=== PATIENT | female | born 1975 | race Two or more races ===

== ENCOUNTER 2017-02-09 06:00 | Inpatient (IN) | payer OTHER ==
[~2017-02-09] VITALS: Ht 167.6 cm; Wt 104.3 kg
[2017-02-09] MEDS ORDERED: CEFAZOLIN SODIUM/DEXTROSE,ISO 50 ML IV ONE (06:25)
[2017-02-09] MEDS ORDERED: IV SET PRIMARY 1 EA INFUS.SET MC ONE (06:25)
[2017-02-09] MEDS ORDERED: SECONDARY IV SET 1 EA INFUS.SET MC ONE ×2 (06:25→16:01)
[2017-02-09] MEDS ORDERED: IV LR 1000 ML 1,000 ML ONE (06:26)
--- NOTE | 2017-02-09 06:30 | NUR ---
PLZ SEE PRE OP ASSESSMENT SHEET FOR INFORMATION
[2017-02-09] MEDS ORDERED: LISI-603 PO (08:28)
[2017-02-09] MEDS ORDERED: METF500T4 PO (08:28)
[2017-02-09] MEDS ORDERED: MIDAZOLAM HCL 2 MG/2ML VIAL ONE (09:45)
[2017-02-09] MEDS ORDERED: FENTANYL PF 100MCG/2ML AMPUL ONE ×3 (09:46→13:50)
[2017-02-09] MEDS ORDERED: BUPIVACAINE 0.5 % PF 150 MG/30 ML VIAL ONE (10:01)
[2017-02-09] MEDS ORDERED: BUPIVACAINE MPF 0.5% W/EPI INJ 30 ML VIAL ONE (10:56)
[2017-02-09] MEDS ORDERED: KETOROLAC TROMETHAMINE INJ 30 MG/ML VIAL ONE (10:56)
[2017-02-09] MEDS ORDERED: BACITRACIN 50000 UNITS/VIAL ONE (10:57)
[2017-02-09] MEDS ORDERED: TRANEXAMIC ACID 3,000 MG in SODIUM CHLORIDE IRRIG SOLUTION 70 ML IR ONE (11:30)
[2017-02-09] MEDS ORDERED: HYDROMORPHONE INJ 2 MG/ML DISP.SYRIN ONE (11:46)
[2017-02-09] MEDS ORDERED: HYDROMORPHONE 1 MG/1 ML DISP.SYRIN ONE ×2 (13:24→13:38)
[2017-02-09] MEDS ORDERED: IV NS 0.9% 1,000 ML ONE (13:32)
[2017-02-09] MEDS ORDERED: DOCUSATE SODIUM 250 MG CAPSULE PO PRN (13:43)
[2017-02-09] MEDS ORDERED: ONDANSETRON HCL/PF 4 MG/2 ML VIAL IV PRN (14:00)
[2017-02-09] MEDS ORDERED: IV D5/0.45 NACL 1,000 ML IV PRN (14:00)
[2017-02-09] MEDS ORDERED: HYDROCODONE/APAP 5/325MG 1 EACH TABLET PO PRN (14:00)
[2017-02-09] MEDS ORDERED: ACETAMINOPHEN 325 MG TABLET PO PRN (14:00)
[2017-02-09] MEDS ORDERED: HYDROMORPHONE 1 MG/1 ML DISP.SYRIN IV PRN (14:30)
[2017-02-09] MEDS ORDERED: diphenhydrAMINE HCL 25 MG CAPSULE PO PRN (14:30)
[2017-02-09] MEDS ORDERED: LORAZEPAM 0.5 MG TABLET PO PRN (14:30)
[2017-02-09] MEDS ORDERED: CLONIDINE HCL 0.1 MG TABLET PO PRN (14:30)
[2017-02-09] MEDS ORDERED: NALOXONE HCL 0.4 MG/ML AMPUL IV PRN (14:30)
[2017-02-09] MEDS ORDERED: MENTHOL/CETYLPYRD (CEPACOL) 1 LOZ LOZENGE PO PRN (14:30)
[2017-02-09] MEDS ORDERED: MAG HYDROX/AL HYDROX/SIMETH 30 ML UDC PO PRN (14:30)
[2017-02-09] MEDS ORDERED: ONDANSETRON HCL/PF 4 MG/2 ML VIAL IVP PRN (14:30)
[2017-02-09] MEDS ORDERED: BISACODYL SUPP (10 MG) 10 MG/SUPP.RECT SUPP.RECT RC PRN ×2 (14:30→22:00)
--- NOTE | 2017-02-09 14:30 | NUR ---
OR PT RECEIVED REPORT GIVEN AT BEDSIDE BY CITY COUNCILMAN. PT RESTING IN BED. ASLEEP INTERMITTENTLY. NO S/S OR C/O PAIN OR DISTRESS NOTED. SIDE RAILS UP X2, CALL LIGHT LEFT WITHIN REACH. PT ORIENTED TO ROOM, BED, AND UNIT POLICIES REGARDING PATIENT CARE AND VISITING HOURS. ALL QUESTIONS AND CONCERNS ADDRESSED. PATIENT VERBALIZED UNDERSTANDING.
[2017-02-09] MEDS ORDERED: IV SET PRIMARY PUMP SET 1 EA INFUS.SET MC ONE (14:49)
[2017-02-09] MEDS ORDERED: IV NS 0.9% 250 ML IV ONE (16:07)
[2017-02-09] MEDS: ANCEF 1 GM/50 ML D5W IV SCH ×2 (16:13)
[2017-02-09] MEDS: RIVAROXABAN 10 MG TABLET PO SCH (16:14)
[2017-02-09] MEDS: DOCUSATE SODIUM 100 MG CAPSULE PO SCH (16:14)
[2017-02-09] MEDS ORDERED: SET PCA INFUSE SET 1 EA INFUS.SET MC ONE (16:34)
[2017-02-09] MEDS: HYDROMORPHONE MDV 30 MG in IV NS 0.9% 15 ML, PCA TOTAL VOLUME 1 BAG IV PRN ×3 (16:42)
[2017-02-09] MEDS ORDERED: DEXTROSE 50%-WATER 50 ML DISP.SYRIN IV PRN (17:30)
[2017-02-09] MEDS: METFORMIN 500 MG TABLET PO SCH (17:47)
[2017-02-09] MEDS: LISINOPRIL (20MG) 20 MG TABLET PO SCH (17:47)
[2017-02-09] MEDS: BLOOD SUGAR DIAGNOSTIC 1 EACH STRIP IN SCH ×2 (17:48→21:51)
--- NOTE | 2017-02-09 18:32 | NUR ---
CHANGE OF SHIFT REPORT PT RESTING COMFORTABLY IN BED. NO S/S OR C/O PAIN OR DISTRESS NOTED. SIDE RAILS UP X2, CALL LIGHT LEFT WITHIN REACH. PT KEPT CLEAN, DRY, AND COMFORTABLE. NO SIGNIFICANT CHANGES SINCE PREVIOUS ADMISSION WILL GIVE REPORT TO GABRIELA BARNARD.
--- NOTE | 2017-02-09 19:32 | NUR ---
MS/RN OPENING NOTES RECEIVED PATIENT IN BED, HOB ELEVATED. AWAKE, ALERT X4. CAN VERBALIZE NEEDS. ON RADIOCHEMICAL TECHNICIAN FOR PAIN MGMT.ON F/C. WITH OXGEN VIA NC 2L, NWB. ON CARB CONTROL DIET WILL CONTINUE PLAN OF CARE AND CONTINUE MONITORING.
[2017-02-09 20:00] VITALS: BP 102/51
[2017-02-09] MEDS ORDERED: ZOLPIDEM TARTRATE 5 MG TABLET PO PRN (22:00)
[2017-02-09] MEDS ORDERED: SENNOSIDES 8.6 MG TABLET PO PRN (22:00)
[2017-02-09] MEDS: INSULIN REGULAR, HUMAN 100 UNIT/ML 3 ML VIAL SQ PRN (22:06)
[2017-02-09] MEDS: PANTOPRAZOLE 40 MG TABLET.DR PO SCH (23:15)
[2017-02-10] MEDS ORDERED: IV 1/2NS 1000 ML 1,000 ML IV ONE ×2 (00:09→00:30)
[2017-02-10] MEDS: ANCEF 1 GM/50 ML D5W IV SCH ×2 (00:20)
--- NOTE | 2017-02-10 06:15 | NUR ---
MS/RN NOTES PATIENT IN BED, AWAKE AND ABLE TO SLEEP DURING THE NIGHT. ATTEND TO NEEDS. KEPT SKIN INTACT AND DRY.WILL CONTINUE TO MONITOR AND CALL LIGHTS WITHIN REACH.
[2017-02-10] MEDS: BLOOD SUGAR DIAGNOSTIC 1 EACH STRIP IN SCH ×4 (06:17→21:33)
--- NOTE | 2017-02-10 06:46 | NUR ---
MS/RN CLOSING NOTES PATIENT IN BED, AWAKE, NO S/S OF SOB OR DISTRESS. CALL LIGHTS WITHIN REACH AND ATTEND TO NEEDS AT ALL TIMES. WILL ENDORSE TO AM RN GUSTAVO.
--- NOTE | 2017-02-10 07:00 | NUR ---
RECEIVED REPORT FROM NIGHT NURSE. PT WAS SITTING UP IN BED WATCHING TV WITH BED IN LOWEST POSITION, CALL LIGHTS WITHIN REACH,TWO SIDE RAILS UP, NO SIGNS OF SOB OR DISTRESS. WILL ASSESS, MONITOR, AND IMPLEMENT PLAN OF CARE.
[2017-02-10 07:22] LABS: BASOPHILS % (AUTO) 0.2 % (0.0-2.0); EOSINOPHILS # (AUTO) 0.1 /CMM (0.0-0.7); EOSINOPHILS % (AUTO) 0.9 % (0.0-6.0); HEMATOCRIT 31 % (33-45); HEMOGLOBIN 10.8 g/dL (11.5-14.8); LYMPHOCYTES # (AUTO) 2.6 /CMM (0.8-4.8); LYMPHOCYTES % (AUTO) 19.3 % (20.0-44.0); MEAN CORPUSCULAR HEMOGLOBIN 29 PG (26.0-33.0); MEAN CORPUSCULAR HGB CONC 34 g/dl (31.0-36.0); MEAN CORPUSCULAR VOLUME 85 fL (82-100); MONOCYTES % (AUTO) 7.1 % (2.0-12.0); NEUTROPHILS # (AUTO) 9.9 /CMM (1.8-8.9); NEUTROPHILS % (AUTO) 72.5 % (43.0-81.0); PLATELET COUNT (AUTO) 320 /CMM (150-450); RDW COEFFICIENT OF VARIATION 12.7 (11.5-15.0); RED BLOOD CELL COUNT(AUTO) 3.67 MIL/uL (4.0-5.2); WHITE BLOOD COUNT (AUTO) 13.7 K/uL (4.3-11.0)
[2017-02-10 07:52] LABS: CALCIUM, SERUM 7.7 mg/dL (8.5-10.1); CREATININE 0.6 mg/dL (0.6-1.3); MAGNESIUM 1.4 mg/dL (1.8-2.4); PHOSPHORUS 3.7 mg/dL (2.5-4.9); POTASSIUM 4.1 mmol/L (3.5-5.1)
[2017-02-10 08:00] VITALS: BP 116/75
[2017-02-10] MEDS: DOCUSATE SODIUM 100 MG CAPSULE PO SCH ×2 (08:49→16:13)
[2017-02-10] MEDS: METFORMIN 500 MG TABLET PO SCH ×2 (08:49→16:13)
[2017-02-10] MEDS: LISINOPRIL (20MG) 20 MG TABLET PO SCH (08:49)
[2017-02-10] MEDS ORDERED: Magnesium 1GM/D5W 100ML PREMIX 100 ML IV SCH (09:30)
[2017-02-10] MEDS ORDERED: IV NS 0.9% 250 ML IV ONE (09:48)
[2017-02-10] MEDS: HYDROMORPHONE 1 MG/1 ML DISP.SYRIN SQ PRN ×3 (11:03→23:08)
[2017-02-10] MEDS: INSULIN REGULAR, HUMAN 100 UNIT/ML 3 ML VIAL SQ PRN ×3 (13:05→21:45)
[2017-02-10] MEDS ORDERED: SECONDARY IV SET 1 EA INFUS.SET MC ONE (14:13)
[2017-02-10] MEDS ORDERED: SET PCA INFUSE SET 1 EA INFUS.SET MC ONE (15:28)
[2017-02-10] MEDS: HYDROMORPHONE MDV 30 MG in IV NS 0.9% 15 ML, PCA TOTAL VOLUME 1 BAG IV PRN ×3 (15:43)
[2017-02-10 16:00] VITALS: BP 119/41
[2017-02-10] MEDS: RIVAROXABAN 10 MG TABLET PO SCH (16:14)
--- NOTE | 2017-02-10 19:01 | NUR ---
NURSE CLOSING NOTES PATIENT IS ABOUT TO RECEIVED BREAK THROUGH PAIN MED. PATIENT IS SITTING IN BED IN LOWEST POSITION, CALL LIGHT WITHIN REACH AND PATIENT WOULD LIKE TO USE CPM MACHINE SOON. GAVE REPORT TO NIGHT NURSE WITH THE LATEST PAIN MEDS GIVEN
[2017-02-10 20:00] VITALS: BP 103/56
--- NOTE | 2017-02-10 20:00 | NUR ---
RECEIVED PATIENT IN BED, ALERT AND ORIENTED X4, CALM, NO SOB, NO RESPIRATORY DISTRESS, ON CONTINUOUS SP02 MONITORING SECONDARY TO EMPLOYEE ADVISER USE. LUNG SOUNDS ARE CLEAR, O2 SAT 100%. S/P LEFT KNEE TKA, ON EMPLOYEE ADVISER DILAUDID, CHECKED SETTINGS, REINFORCE TEACHING ON EMPLOYEE ADVISER USE. REPOSITIONED FOR COMFORT, PUT ON CPM PER SCHEDULE. NEEDS ATTENDED, CALL LIGHT WITHIN REACH.
[2017-02-10 20:43] VITALS: BP 103/56
[2017-02-10] MEDS: oxyCODONE IR immediate release 5 MG CAPSULE PO PRN (20:58)
[2017-02-10] MEDS: PANTOPRAZOLE 40 MG TABLET.DR PO SCH (21:44)
--- NOTE | 2017-02-10 22:07 | NUR ---
GIVEN OXYCODONE IR 10 MG PO FOR PAIN OF 8/10 TO LEFT KNEE, ALSO ON AUTO SEAT COVER INSTALLER PUMP, 02 SAT AT 2LPM VIA NC IS 99%M WILL CONTINUE TO MONITOR.
--- NOTE | 2017-02-10 22:41 | NUR ---
RIGHT HAND PERIPHERAL LINE IS INFILTRATED, DISCONTINUED LINE, STARTED NEW LINE TO LEFT FOREARM #22, PROCEDURE TOLERATED WELL.
--- NOTE | 2017-02-10 23:14 | NUR ---
PATIENT COMPLAINING OF 10/10 PAIN TO LEFT KNEE, ALERT AND AWAKE, 02 SAT 98%, KEPT HOB ELEVATED. WILL CONTINUE TO MONITOR.
[2017-02-11] MEDS: oxyCODONE IR immediate release 5 MG CAPSULE PO PRN ×6 (01:54→23:01)
--- NOTE | 2017-02-11 03:07 | NUR ---
PATIENT RESTING COMFORTABLY, NO SOB, ON 2LPM VIA NC, 02 SAT 98%, WILL CONTINUE TO MONITOR.
--- NOTE | 2017-02-11 04:55 | NUR ---
OFFERED BEDPAN, PATIENT REFUSED. OFFERED X3
--- NOTE | 2017-02-11 06:30 | NUR ---
PATIENT IS AWAKE AND ALERT, NO SOB, NO RESPIRATORY DISTRESS, ON FARM OR RANCH ANIMAL CARETAKER DILAUDID, S/P LEFT KNEE ARTHROPLASTY. NO RESIDUAL DROWSINESS FROM MEDICATION. PROVIDED ROUND THE CLOCK PAIN MANAGEMENT WITH FARM OR RANCH ANIMAL CARETAKER AND PRN MEDICATIONS.LEFT KNEE DRESSING CLEAN, NO BLEEDING NOTED. PATIENT PUT ON BEDSIDE COMMODE, VOIDED AFTER 15 MINUTES. URINE IS DARK [place]. PER PATIENT UNABLE TO VOID USING BEDSIDE COMMODE. ALL DUE MEDICATIONS GIVEN, CALL LIGHT WITHIN REACH.
[2017-02-11] MEDS: BLOOD SUGAR DIAGNOSTIC 1 EACH STRIP IN SCH ×4 (06:48→21:55)
[2017-02-11] MEDS: INSULIN REGULAR, HUMAN 100 UNIT/ML 3 ML VIAL SQ PRN ×4 (06:54→22:17)
[2017-02-11 08:00] VITALS: BP 116/66
--- NOTE | 2017-02-11 08:00 | NUR ---
MS RN RECEIVE DON BED, AWAKE,ALERT,ORIENTED X4,NOT IN ANY FORM OF DISTRESS, RESPIRATIONS EVEN AND UNLABORED,NO SOB NOTED. LUNGS ARE CLEAR, ABDOMEN SOFT,POSITIVE BOWEL SOUNDS,S/P LEFT KNEE SURGERY, ON INTERNET SECURITY SPECIALIST OF DILAUDID, DENIES PAIN AT THIS TIME. SX SITE W/ DRESSING DRY AND INTACT, WILL MONITOR PATIENT'S CONDITION.
--- NOTE | 2017-02-11 08:30 | NUR ---
MS BARNARD BREAKFAST SERVED,DUE MEDS GIVEN, TOLERATED WELL.
[2017-02-11] MEDS: DOCUSATE SODIUM 100 MG CAPSULE PO SCH ×2 (09:15→17:47)
[2017-02-11] MEDS: METFORMIN 500 MG TABLET PO SCH ×2 (09:15→17:47)
[2017-02-11] MEDS: LISINOPRIL (20MG) 20 MG TABLET PO SCH (09:16)
--- NOTE | 2017-02-11 11:00 | NUR ---
MS RN WAS SEEN BY PT, SEATED ON A CHAIR, ALL NEEDS ATTENDED.
[2017-02-11 11:20] LABS: BASOPHILS % (AUTO) 0.2 % (0.0-2.0); EOSINOPHILS # (AUTO) 0.2 /CMM (0.0-0.7); EOSINOPHILS % (AUTO) 1.6 % (0.0-6.0); HEMATOCRIT 34 % (33-45); HEMOGLOBIN 11.3 g/dL (11.5-14.8); LYMPHOCYTES # (AUTO) 1.6 /CMM (0.8-4.8); LYMPHOCYTES % (AUTO) 12.5 % (20.0-44.0); MEAN CORPUSCULAR HEMOGLOBIN 29 PG (26.0-33.0); MEAN CORPUSCULAR HGB CONC 34 g/dl (31.0-36.0); MEAN CORPUSCULAR VOLUME 87 fL (82-100); MONOCYTES # (AUTO) 1.2 /CMM (0.1-1.30); MONOCYTES % (AUTO) 9.9 % (2.0-12.0); NEUTROPHILS # (AUTO) 9.4 /CMM (1.8-8.9); NEUTROPHILS % (AUTO) 75.8 % (43.0-81.0); PLATELET COUNT (AUTO) 257 /CMM (150-450); RED BLOOD CELL COUNT(AUTO) 3.89 MIL/uL (4.0-5.2); WHITE BLOOD COUNT (AUTO) 12.4 K/uL (4.3-11.0)
[2017-02-11 11:24] LABS: CALCIUM, SERUM 8.3 mg/dL (8.5-10.1); CREATININE 0.9 mg/dL (0.6-1.3); POTASSIUM 4.3 mmol/L (3.5-5.1)
--- NOTE | 2017-02-11 13:00 | NUR ---
MS RN WAS SEEN BY DR. WALLACE, [employer] HAZMAT DRIVER [place], W/ NEW ORDERS MADE AND CARRIED OUT.
[2017-02-11] MEDS: HYDROMORPHONE 1 MG/1 ML DISP.SYRIN SQ PRN (13:45)
[2017-02-11 16:00] VITALS: BP_SYST 115; BP_SYST 116; BP_DIAS 65; BP_DIAS 66
--- NOTE | 2017-02-11 17:30 | NUR ---
MS BARNARD BS -181 - 3 UNITS GIVEN.
--- NOTE | 2017-02-11 17:30 | NUR ---
MS BARNARD BS - 181- 3 UNITS OF REGULAR INSULIN GIVEN.
[2017-02-11] MEDS: RIVAROXABAN 10 MG TABLET PO SCH (17:48)
--- NOTE | 2017-02-11 18:25 | NUR ---
MS RN ON BED, NO DISTRESS NOTED.
--- NOTE | 2017-02-11 19:30 | NUR ---
RN NOTES RECEIVED PT. AWAKE ON BED, A/OX4, LEFT KNEE DRESSING DRY AND INTACT, CALL LIGHT WITHIN REACH SIDERAILS UPX2 CONTINUE TO MONITOR
[2017-02-11 20:00] VITALS: BP 97/58
--- NOTE | 2017-02-11 20:04 | NUR ---
RN NOTES COMPLAINED OF LEFT KNEE PAIN- OXY IR 15MG PO GIVEN ORDERED, V/S STABLE
[2017-02-11] MEDS: PANTOPRAZOLE 40 MG TABLET.DR PO SCH (21:54)
--- NOTE | 2017-02-11 23:00 | NUR ---
RN NOTES COMPLAINED OF LEFT KNEE PAIN- OXY IR 15MG PO GIVEN ORDERED, V/S STABLE
[2017-02-12] MEDS: oxyCODONE IR immediate release 5 MG CAPSULE PO PRN ×5 (06:36→21:28)
[2017-02-12] MEDS: INSULIN REGULAR, HUMAN 100 UNIT/ML 3 ML VIAL SQ PRN ×4 (06:43→21:36)
--- NOTE | 2017-02-12 07:02 | NUR ---
RN NOTES COMPLAINED OF LEFT KNEE PAIN- OXY IR 15MG PO GIVEN ORDERED, V/S STABLE, MORNING CARE RENDERED, PT. NEEDS ATTENDED
--- NOTE | 2017-02-12 07:39 | NUR ---
RN MS NOTES PT IN BED, ASLEEP, EASILY AROUSABLE, ALERT AND ORIENTED, NO COMPLAINT OF PAIN AT THIS TIME, RESPIRATIONS NORMAL AND NOT LABORED, CALL LIGHT WITHIN REACH, NEEDS ATTENDED.
[2017-02-12] MEDS: BLOOD SUGAR DIAGNOSTIC 1 EACH STRIP IN SCH ×4 (07:42→21:29)
[2017-02-12 08:05] VITALS: BP 109/61
[2017-02-12] MEDS ORDERED: RIVA10TA PO (08:55)
[2017-02-12] MEDS ORDERED: Oxycodone Hcl PO (08:55)
[2017-02-12] MEDS: LISINOPRIL (20MG) 20 MG TABLET PO SCH (09:00)
[2017-02-12] MEDS: METFORMIN 500 MG TABLET PO SCH ×2 (09:15→16:40)
[2017-02-12] MEDS: DOCUSATE SODIUM 100 MG CAPSULE PO SCH ×2 (09:15→16:40)
--- NOTE | 2017-02-12 12:30 | NUR ---
RN MS NOTES PT IN BED, RESTING, PAIN MEDICATION GIVEN FOR PAIN MANAGEMENT, RESPIRATIONS NORMAL AND NOT LABORED, CALL LIGHT WITHIN REACH, TOLERATING PT EXERCISES WELL, BLOOD SUGAR CHECKED, INSULIN GIVEN PER SLIDING SCALE ORDERED, NEEDS ATTENDED.
[2017-02-12 16:00] VITALS: BP_SYST 105; BP_SYST 145; BP_DIAS 64; BP_DIAS 75
[2017-02-12] MEDS ORDERED: MAGNESIUM HYDROXIDE 30 ML UDC PO PRN (16:30)
[2017-02-12] MEDS: RIVAROXABAN 10 MG TABLET PO SCH (16:43)
--- NOTE | 2017-02-12 18:50 | NUR ---
RN MS NOTES PT IN BED, RESTING, PAIN MEDICATION GIVEN NEEDED FOR PAIN MANAGEMENT, BLOOD SUGAR CHECKED, INSULIN GIVEN PER SLIDING SCALE ORDERED, PM MEDS GIVEN, PT REFUSED DULCOLAX SUPPOSITORY, STATED SHE WILL GO NO.2 EVENTUALLY AND SHE HAS BEEN TAKING COLACE, NO COMPLAINT OF ANY ABDOMINAL DISCOMFORT, PM CARE RENDERED, ALL NEEDS ATTENDED.
--- NOTE | 2017-02-12 20:00 | NUR ---
INITIAL MACHINE WORKER NOTES RECEIVED PT IN BED AWAKE AND ALERT JUST BACK TO BED AFTER USING THE RESTROOM. AMBULATE WITH WALKER AND LEFT LEG NOTED WITH IMMOBILIZER. DRESSING DRY AND INTACT. NOT IN ANY ACUTE DISTRESS OR DISCOMFORT NOTED. ASKING FOR HER PAIN MEDS AT 2130 . KEPT HER COMFORTABLE AT ALL TIMES. PLACE CALL LIGHT AT REACH. WILL CONTINUE TO MONITOR.
[2017-02-12 20:45] VITALS: BP 94/48
[2017-02-12 21:14] VITALS: BP 110/63
[2017-02-12] MEDS: PANTOPRAZOLE 40 MG TABLET.DR PO SCH (21:28)
--- NOTE | 2017-02-12 21:28 | NUR ---
MS SOCIAL SERVICES COUNSELOR NOTES C/O LEFT KNEE PAIN OXY IR GIVEN ORDERED. BLOOD SUGAR ALSO CHECKED 176, 3 UNITS OF REGULAR INSULIN GIVEN AND SNACKS ALSO SERVED. REPOSITION PT FOR COMFORT. KEPT HER COMFORTABLE AT ALL TIMES WILL CONTINUE TO MONITOR. PLACE CALL LIGHT AT REACH.
[2017-02-12 21:30] VITALS: BP 110/63
[2017-02-13] MEDS: oxyCODONE IR immediate release 5 MG CAPSULE PO PRN ×5 (01:34→18:03)
--- NOTE | 2017-02-13 01:35 | NUR ---
ms gael notes pt woke up and asking for her pain med OXY IR . 15 MG OF OXY IR GIVEN AND HELPED THE PT REPOSITION FOR COMFORT. WILL CONTINUE TO MONITOR.
--- NOTE | 2017-02-13 04:51 | NUR ---
ADJUSTER ARBITRATOR/NOTES RE-ASSESSMENT PT CHECKED , SHE'S RESTING AT THIS TIME BUT AROUSE TO TOUCH. NO SIGNS OF ANY ACUTE DISTRESS NOTED,. WILL CONTINUE TO MONITOR.
[2017-02-13] MEDS: INSULIN REGULAR, HUMAN 100 UNIT/ML 3 ML VIAL SQ PRN ×2 (06:49→11:39)
[2017-02-13] MEDS: BLOOD SUGAR DIAGNOSTIC 1 EACH STRIP IN SCH ×3 (07:18→17:02)
--- NOTE | 2017-02-13 07:27 | NUR ---
TOURIST HOME KEEPER CLOSING NOTES PT RESTING AFTER PAIN MEDS GIVEN SHE REQUESTED AFTER SHE AMBULATE INSIDE HER ROOM. BLOOD SUGAR CHECKED DONE 167, 3 UNITS OF INSULIN GIVEN ORDERED. NO SIGNS OF HYPO HYPER GLYCEMIA NOTED. ALL DUE MEDS GIVEN AND ALL NEEDS MET. SLEPT WELL AND STABLE COSME THE NIGHT. ENDORSE TO AM NURSE.
[2017-02-13 08:00] VITALS: BP 117/69
--- NOTE | 2017-02-13 08:00 | NUR ---
AM RN NOTES RECEIVED PT IN STABLE CONDITION, NO SOB OR DISTRESS NOTED, NO PAIN OR DISCOMFORT AT THIS TIME, PROVIDED WITH BREAKFAST, WILL MONITOR.
[2017-02-13] MEDS: DOCUSATE SODIUM 100 MG CAPSULE PO SCH ×2 (08:51→16:28)
[2017-02-13] MEDS: METFORMIN 500 MG TABLET PO SCH ×2 (08:51→16:28)
[2017-02-13] MEDS: LISINOPRIL (20MG) 20 MG TABLET PO SCH (08:52)
[2017-02-13] MEDS ORDERED: IV SET PRIMARY PUMP SET 1 EA INFUS.SET MC ONE (14:44)
[2017-02-13] MEDS ORDERED: IV NS 0.9% 250 ML IV ONE (14:45)
[2017-02-13] MEDS ORDERED: SECONDARY IV SET 1 EA INFUS.SET MC ONE (14:45)
[2017-02-13 16:08] VITALS: BP 116/79
[2017-02-13] MEDS: RIVAROXABAN 10 MG TABLET PO SCH (16:37)
--- NOTE | 2017-02-13 17:10 | NUR ---
PT REFUSED INSULIN AT THIS TIME, BLOOD SUGAR 158 MG/DL, RISKS AND BENEFIT OF REFUSAL DISCUSSED, WILL MONITOR.
--- NOTE | 2017-02-13 19:04 | NUR ---
PT IN STABLE CONDITION, RESTING IN BED, NO PAIN AT THIS TIME, PAIN MEDICATION WITH HELP, REPORT GIVEN TO REHAB AND PT READY FOR DISCHARGE, ETA AT 1930, WILL INDORSE PT TO NEXT SHIFT.
--- NOTE | 2017-02-13 19:15 | NUR ---
MS RN NOTES RECEIVED PT IN BED, AWAKE, A/O X 3. ABLE TO VERBALIZE NEEDS. NO ACUTE DISTRESS, NO SOB NOTED. RESPIRATION IS EVEN AND UNLABORED. SKIN IS WARM AND DRY. DENIES ANY PAIN OR DISCOMFORT AT THIS TIME. SAFETY PRECAUTIONS OBSERVED. ALL NEEDS ATTENDED AND MET. CALL LIGHT WITHIN REACH. PT FOR DISCHARGED AWAITING FOR TRANSPORTATION. WILL CONTINUE TO MONITOR.
--- NOTE | 2017-02-13 19:55 | NUR ---
MS RN NOTES PT DC'D TO [facility]. REPORT GIVEN TO EVON PEREYRA ( [facility]) BY DAYSUTFT NURSE. PICKED UP BY [facility]. PT STABLE, NO DISTRESS NOTED. DENIES ANY PAIN OR DISCOMFORT. IV HL ON RFA REMOVED. REPORT GIVEN TO [facility] CREW. TRANSFERRED FROM BED TO AMBULANCE STRETCHER SAFELY.
== END 2017-02-13 19:55 | DRG 470 ==
LOC: DS 06:00 → MED 14:27
PROVIDERS: ADMIT Internal Medicine; ATTEND Internal Medicine
PROC: 0SRD0J9 Replacement of Left Knee Joint with Synthetic Substitute, Cemented, Open Approach (ICD-10-PCS; principal; 2017-02-09 09:50)
DX: M17.12 Unilateral primary osteoarthritis, left knee (principal); J95.89 Other postprocedural complications and disorders of respiratory system, not elsewhere classified; J98.11 Atelectasis; E66.01 Morbid (severe) obesity due to excess calories; I10 Essential (primary) hypertension; E11.9 Type 2 diabetes mellitus without complications; E83.42 Hypomagnesemia; Z98.84 Bariatric surgery status; Y99.0 Civilian activity done for income or pay
CPT/HCPCS: 36415; 80048-TC; 82962-TC; 83735-TC; 84100-TC; 84703-TC; 85025-TC; 86850-TC; 86921-TC; 87081-TC; 88305-TC; 88311-TC; 97001-TC; 97003-TC; 97110-TC; 97112-TC; 97116-TC; 97530-TC; A4216; A4217; A4606; A6402; C1713; J0690; J1100; J1170; J1815; J1885; J2250; J2405; J2704; J3010; J3475; J3490; J7030; J7050; J7060; J7120; L1830; Z7610